=== PATIENT | male | born 1970 | race Caucasian/White ===

== ENCOUNTER 2022-08-17 09:13 | Outpatient (CLI) | payer OTHER ==
--- NOTE | 2022-08-17 17:10 | XRAY Report ---
PROCEDURE: Chest 2 View X-Ray INDICATIONS: UNEXPLAINED COUGH TECHNIQUE: 2 views of the chest were acquired. COMPARISON: None. FINDINGS: Surgical changes and devices: None. Lungs and pleura: No pleural effusions or pneumothorax. Lungs are clear. Mediastinum: Mediastinal contours are normal. Heart size is normal. Bones and chest wall: No suspicious bony abnormalities. Soft tissues appear unremarkable. IMPRESSION: No acute cardiopulmonary pathology. Reviewed by: Isreal Sierra MD on 08/17/2022 5:08 PM [facility] [[email or web address]] Approved by: Isreal Sierra MD on 08/17/2022 5:08 PM [facility] [[email or web address]] Station ID: [id number]
== END 2022-08-17 09:14 | disposition home or self-care (01) ==
LOC: DI 09:13
PROVIDERS: ATTEND Physician Assistant
DX: R05.9 Cough, unspecified (principal)

== ENCOUNTER 2022-09-14 16:32 | Emergency (ER) | payer OTHER ==
[2022-09-14 17:04] VITALS: BP 107/74
--- NOTE | 2022-09-14 17:50 | XRAY Report ---
PROCEDURE: Hand 3 View LT INDICATIONS: L hand pain s/p R 4th digit being hyperext TECHNIQUE: 3 views of the hand(s) acquired. COMPARISON: None FINDINGS: Bones: No fractures or dislocations. No suspicious bony lesions. Soft tissues: No suspicious soft tissue calcifications. IMPRESSION: Normal left hand Reviewed by: Jaime Chavez on 09/14/2022 4:48 PM [place] Approved by: Jaime Chavez on 09/14/2022 4:48 PM [place] Station ID: [id number]
--- NOTE | 2022-09-14 17:58 | ED Physician Documentation ---
PD HPI UPPER EXT INJURY - Stated complaint Stated Complaint: LT HAND INJ - Chief complaint Chief Complaint: Laceration - History obtained from History obtained from: Patient - History of Present Illness Location: Left, Hand Type of injury: Laceration Pain level max: 5 Pain level now: 5 Improved by: Rest Worsened by: Moving, Palpating - Additonal information Additional information: Patient is a 52-year-old male who was playing football today when his left ring finger was bent backwards and sustained a laceration to the base of the finger. No numbness or tingling. He is able to move the finger. Worse with movement, better with rest Review of Systems Neurologic: denies: Head injury PD PAST MEDICAL HISTORY - Past Medical History Past Medical History: No - Allergies Allergies/Adverse Reactions: Allergies Allergy/AdvReac Type Severity Reaction Status Date / Time No Known Drug Allergies Allergy Verified 09/14/22 17:05 PD ED PE NORMAL - Vitals Vital signs reviewed: Yes - General General: Alert and oriented X 3, No acute distress - HEENT HEENT: Moist mucous membranes - Neck Neck: Supple, no meningeal sign - Derm Derm: Warm and dry - Extremities Extremities: Other (Left ring finger - Tenderness to palpation over the fourth metacarpal and the entirety of the left ring finger. Limited range of motion secondary to pain. Neurovascularly intact. There is a 2 cm laceration at the base, linear, subcutaneous. Tendon intact) - Neuro Neuro: Alert and oriented X 3 - Psych Psych: Normal mood, Normal affect Results - Vitals Vitals: Vital Signs - 24 hr 09/14/22 17:02 Temperature 37.2 C Heart Rate 95 Respiratory 16 Rate Blood Pressure 107/74 O2 Saturation 99 Oxygen O2 Source Room air - Rads (name of study) Left hand x-ray Radiology: Final report received, See rad report (No acute abnormality) Procedures - Laceration (location) Left ring finger Length in cm: 2 Wound type: Linear, Into subcut fat, Clean Neurovascular status: Sensory intact, Motor intact, Vascular intact Tendon involvement: Tendon intact Anesthesia: Lidocaine 1%, With bicarb Wound preparation: Irrigated copiously NS Skin layer closure: Nylon, Interrupted, Size #-0 - enter number (4) Other: Patient tolerated well, No complications, Neurovascular intact, Dressing applied, Tetanus UTD PD Medical Decision Making - ED course Complexity details: reviewed results, re-evaluated patient, considered differential, d/w patient ED course: 52-year-old male presents to the emergency department with a left ring finger laceration after the finger was bent backwards playing football tonight. No acute findings on x-ray. Laceration was repaired. Tolerated well. Tetanus up-to-date. Warnings of infection and instructions on wound care given at bedside. Also counseled on how to minimize scarring. Patient placed in a finger splint for comfort. He will follow-up with his doctor for repeat evaluation in 10 to 14 days and for suture removal at that time. Patient counseled regarding signs and symptoms for which I believe and urgent re-evaluation would be necessary. Patient with good understanding of and agreement to plan and is comfortable going home at this time This document was made in part using voice recognition software. While efforts are made to proofread this document, sound alike and grammatical errors may occur. Departure - Departure Disposition: 01 Home, Self Care Clinical Impression: Laceration Condition: Good Instructions: ED Laceration Hand Follow-Up: JIMMY ERICKSON MD [Primary Care Provider] - Comments: Please follow-up with your doctor in 10 to 14 days for suture removal. Wear the splint for the next 2 to 3 days to help stabilize the joint. Your x-rays do not show any acute abnormality today. There is no evidence of fracture or di slocation. Please return if you notice redness, swelling or drainage from the wound.
== END 2022-09-14 18:11 | disposition home or self-care (01) ==
LOC: ED 16:32
DX: S61.215A Laceration without foreign body of left ring finger without damage to nail, initial encounter (principal); X50.1XXA Overexertion from prolonged static or awkward postures, initial encounter; Y93.61 Activity, american tackle football
CPT/HCPCS: 12001; 99283

== ENCOUNTER 2023-04-15 17:29 | Outpatient (CLI) | payer OTHER ==
--- NOTE | 2023-04-16 08:49 | MRI Report ---
PROCEDURE: KNEE WO - RT INDICATIONS: RIGHT KNEE PAIN TECHNIQUE: Noncontrast sagittal PD fast spin echo and T2 fast spin echo with fat saturation, sagittal 3-D gradie nt sequence with fat saturation; coronal T1 spin echo and PD fast spin echo with fat saturation, and axial PD fast spin echo with fat saturation through the knee. COMPARISON: None. FINDINGS: Image quality: Excellent. Menisci: There is mild T2 signal elevation at the posterior meniscocapsular junction of the posterior horn medial meniscus. There is vague linear vertical high T2 signal intensity traversing the periphe ral third of the posterior horn medial meniscus, demonstrating possible inferior articular surface ex tension, possibly indicating a radial tear. There is linear horizontal high signal intensity traversi ng the inner third of the lateral meniscal body, demonstrating free edge extension, indicating horizo ntal tearing. Cruciate ligaments: The anterior and posterior cruciate ligaments appear intact. Medial structures: The medial collateral ligament appears intact. Visualized portions of the pes ans erinus tendons appear normal. No abnormal bursal fluid. Lateral structures: The lateral collateral ligament, long and short heads of the biceps femoris tend on appear intact. The popliteus tendon appears normal. Iliotibial band appears normal. Anterior structures: The quadriceps and patellar tendons appear intact. Mild T2 signal elevation wit hin the patellar tendon at the patellar and tibial insertion sites. Patellar alignment is normal. No femoral trochlear dysplasia or ventral trochlear prominence. No edema in the infrapatellar fat pad. Bones and cartilage: No bone marrow contusions or fractures. Subchondral cyst formation within the m edial and lateral patellar facets as well as the patellar apex. Mild tricompartmental periareolar art icular osteophyte formation. Moderate articular cartilage loss diffusely overlies the weightbearing a spects of the medial femoral condyle and medial tibial plateau. Moderate to severe articular cartilag e loss overlies the medial and lateral patellar facets. Joint space: There is physiologic knee joint fluid. No Phillip's cyst. Normal appearing synovial pli are incidentally noted. IMPRESSION: 1. Lateral meniscal tearing. 2. Meniscocapsular junction injury involving the medial meniscus with possible vertical tearing of th e posterior horn. 3. Tricompartmental osteoarthritis with associated articular cartilage loss, most prominently in the patellofemoral compartment. 4. Patellar tendinitis. Reviewed by: Kelsie Gilliam MD on 04/16/2023 8:48 AM PDT Approved by: Kelsie Gilliam MD on 04/16/2023 8:48 AM PDT Station ID: [id number]
== END 2023-04-15 17:30 | disposition home or self-care (01) ==
LOC: DI 17:29
DX: S83.281A Other tear of lateral meniscus, current injury, right knee, initial encounter (principal); M17.11 Unilateral primary osteoarthritis, right knee; M76.51 Patellar tendinitis, right knee